=== PATIENT | female | born 1980 | race Caucasian/White ===

== ENCOUNTER 2017-08-13 06:14 | Emergency (ER) | payer OTHER, MEDICAID ==
[~2017-08-13] VITALS: Ht 152.4 cm; Wt 65.8 kg
[2017-08-13 06:15] VITALS: BP_SYST 111
[2017-08-13] MEDS ORDERED: methylPREDNISolone SOD SUCC/PF 62.5 MG/ML VIAL IM ONE (06:30)
[2017-08-13] MEDS ORDERED: KETOROLAC TROMETHAMINE 30 MG VIAL IM ONE (06:30)
[2017-08-13] MEDS ORDERED: cefTRIAXone 500 MG in LIDOCAINE 1%, 20 ML MDV 1 ML IM ONE (06:30)
[2017-08-13 07:20] VITALS: BP_SYST 113
== END 2017-08-13 07:20 | disposition home or self-care (01) ==
LOC: SED 06:14
DX: J02.0 Streptococcal pharyngitis (principal)
CPT/HCPCS: 96372; 99284; J0696; J1885; J2930